=== PATIENT | male | born 2000 | race Caucasian/White ===

== ENCOUNTER 2021-02-28 18:24 | Emergency (ER) | payer OTHER ==
[~2021-02-28] VITALS: Ht 188 cm; Wt 88.6 kg
--- NOTE | 2021-02-28 18:47 | PHYS DOC ---
General Adult EDM: Chief Complaint: CHEST PAIN HPI: HPI: Patient is a 20 year old male without past medical history who presents with left-sided chest pain for the past 3 days. Radiates towards his left shoulder. Started while seated. Is worse with deep inspiration. Feels slightly short of breath with exertion. No shortness of breath at rest. No cough, fever, chills, rhinorrhea, sore throat. He had a negative Covid test last week after a potential work exposure. He has never experienced similar symptoms before. No chest trauma. No lower extremity edema, redness, or pain. No family or personal history of VTE. Review of Systems: Review of Systems: Constitutional: Denies fever or chills. [] Eyes: Denies change in visual acuity. [] HENT: Denies nasal congestion or sore throat. [] Respiratory: Denies cough. Reports exertional shortness of breath. [] Cardiovascular: + chest pain. No edema. [] GI: Denies abdominal pain, nausea, vomiting, bloody stools or diarrhea. [] : Denies dysuria. [] Musculoskeletal: Denies back pain or joint pain. [] Integument: Denies rash. [] Neurologic: Denies headache, focal weakness or sensory changes. [] Endocrine: Denies polyuria or polydipsia. [] Lymphatic: Denies swollen glands. [] Psychiatric: Denies depression or anxiety. [] Heart Score: C/O Chest Pain: Yes HEART Score for Chest Pain: HEART Score for Chest Pain Response (Comments) Value History Slighlty/Non-Suspicious 0 ECG Normal 0 Age < 45 0 Risk Factors No Risk Factors 0 Total 0 Risk Factors: Risk Factors: DM, Current or recent (<one month) smoker, HTN, HLP, family history of CAD, obesity. Risk Scores: Score 0 - 3: 2.5% MACE over next 6 weeks - Discharge Home Score 4 - 6: 20.3% MACE over next 6 weeks - Admit for Clinical Observation Score 7 - 10: 72.7% MACE over next 6 weeks - Early Invasive Strategies Physical Exam: PE: Constitutional: Well developed, well nourished, no acute distress, non-toxic appearance. [] HENT: Normocephalic, atraumatic, bilateral external ears normal, oropharynx moist, no oral exudates, nose normal. [] Eyes: PERRLA, EOMI, conjunctiva normal, no discharge. [] Neck: Normal range of motion, no tenderness, supple, no stridor. [] Cardiovascular:Heart rate regular rhythm, no murmur [] Lungs & Thorax: Bilateral breath sounds clear to auscultation [] Abdomen: Bowel sounds normal, soft, no tenderness, no masses, no pulsatile masses. [] Skin: Warm, dry, no erythema, no rash. [] Back: No tenderness, no CVA tenderness. [] Extremities: No tenderness, no cyanosis, no clubbing, ROM intact, no edema. [] Neurologic: Alert and oriented X 3, normal motor function, normal sensory function, no focal deficits noted. [] Psychologic: Affect normal, judgement normal, mood normal. [] EKG: EKG: Sinus rhythm. Rate 79. Normal axis. Normal intervals. No acute ischemic changes. No ST-elevation, STD, TWI, or Q waves. [] Radiology/Procedures: Radiology/Procedures: CXR[] Impression: [facility] [id number] [place] [address] IMAGING REPORT Signed PATIENT: JESENIA FUENTES SACCOUNT: [id number] : 2000 LOCATION: ER AGE: 20 SEX: M EXAM STATUS: REG ER ORD. PHYSICIAN: KATIUSKA HARPER MD REASON: L chest pain PROCEDURE: CHEST AP ONLY XR CHEST 1V History: Reason: L chest pain / Spl. Instructions: / History: Comparison: None. Findings: No consolidation or pleural effusion. Normal heart size. No pneumothorax. Impression: 1. No acute cardiopulmonary process. Electronically signed by: Amita Chavez DO (02/28/2021 7:05 PM) [facility] DICTATED and SIGNED BY: AMITA CHAVEZ DO DATE: 02/28/21 [id number] 0 Course & Med Decision Making: Course & Med Decision Making Pertinent Labs and Imaging studies reviewed. (See chart for details) Patient is a 20-year-old male who presents with 3 days of pleuritic chest pain and exertional shortness of breath. On arrival he is well-appearing on examination with equal breath sounds and stable vital signs. DDx considered: -PE, dimer ordered -PTX pleuritic pain from pneumonia, CXR for evaluation -Much less likely ACS given his age and lack of risk factors, troponin ordered to evaluate for right heart strain in the event of a PE, but will also be beneficial in ruling out ACS. 1846 -Pericarditis, no ekg changes were seen. - doubt aortic or esophageal etiology. CXR clear, no ptx or infiltrate evident. 191 Blood work normal with CBC, BMP, and negative trop and dimer. Etiology is still somewhat unclear, but given patient's normal vital signs, well appearance, negative work-up feel that he is safe for discharge at this time. 2012 reMail Disclaimer: reMail Disclaimer: This electronic medical record was generated, in whole or in part, using a voice recognition dictation system. Departure Departure Impression: Primary Impression: Chest pain Disposition: HOME / SELF CARE / HOMELESS Condition: STABLE Additional Instructions: Your work-up today was very reassuring. There is no signs of blood clot or heart attack. There is no signs of a pneumonia or damage to your lung. It is somewhat unclear why you are having this chest discomfort. Please continue to keep track of your symptoms and if you develop high fevers, shaking chills, worsening pain, worsening shortness of breath, or other new/concerning symptoms please return to the emergency department for reevaluation. Otherwise please follow-up with your PCP. If you do not have a PCP, please call the number for the [facility] at [phone]. KATIUSKA HARPER MD Feb 28, 2021 18:47
--- NOTE | 2021-02-28 19:07 | RAD ---
XR CHEST 1V History: Reason: L chest pain / Spl. Instructions: / History: Comparison: None. Findings: No consolidation or pleural effusion. Normal heart size. No pneumothorax. Impression: 1. No acute cardiopulmonary process. Electronically signed by: Felix Kaplan DO (02/28/2021 7:05 PM) [facility] [place]
[2021-02-28 19:20] LABS: BASO # 0.1 x10^3/uL (0.0-0.2); BASO % 1 % (0-3); EOS # 0.1 x10^3/uL (0.0-0.7); EOS % 2 % (0-3); HEMATOCRIT 49.5 % (39.0-53.0); HEMOGLOBIN 17.5 g/dL (13.0-17.5); LYMPH # 2.9 x10^3/uL (1.0-4.8); LYMPH % 34 % (24-48); MEAN CORPUSCULAR HEMOGLOBIN 32 pg (25-35); MEAN CORPUSCULAR HGB CONC 35 g/dL (31-37); MEAN CORPUSCULAR VOLUME 91 fL (79-100); MONO # 0.6 x10^3/uL (0.0-1.1); MONO % 8 % (0-9); NEUT # 4.8 x10^3/uL (1.8-7.7); NEUT % 56 % (31-73); PLATELET COUNT 248 x10^3/uL (140-400); RED BLOOD COUNT 5.41 x10^6/uL (4.30-5.70); RED CELL DISTRIBUTION WIDTH 12.7 % (11.5-14.5); WHITE BLOOD COUNT 8.5 x10^3/uL (4.0-11.0)
[2021-02-28 19:31] LABS: CALCIUM 9.5 mg/dL (8.5-10.1); CREATININE 1.2 mg/dL (0.7-1.3); GFR 75.7; POTASSIUM 3.7 mmol/L (3.5-5.1)
[2021-02-28 20:14] VITALS: BP 132/78
== END 2021-02-28 20:45 | disposition home or self-care (01) ==
LOC: ER 18:24
DX: R07.81 Pleurodynia (principal); M25.512 Pain in left shoulder; R06.02 Shortness of breath
CPT/HCPCS: 36415; 71045; 80048; 84484; 85025; 85379; 99284